=== PATIENT | female | born 1970 ===

== ENCOUNTER → 2024-03-02 | Day surgery (SDC) | payer OTHER ==
[~2024-03-02] VITALS: Ht 165.1 cm
[~2024-03-02] MED LIST: Balanced Salt Solution 500 ML OPH SCH; Cefuroxime Sodium 5 MG in BALANCED SALT IRRIG SOLN NO.2 0.5 ML,SYRINGE, DISPOSABLE, 10 ... IO SCH; HUMALOG100 UNIT/1 SQ; METFORMIN HYD1000 MG PO; Midazolam Hydrochloride 2 MG/2 ML VIAL IV ONE; OFLOXACIN 0.3% 5 ML BOTTLE ONE; OFLOXACIN 0.3% 5 ML BOTTLE OPH SCH; PHENYLEPHRINE/KETOROLAC 4 ML in Balanced Salt Solution 500 ML OPH SCH; POVIDONE IODINE 5% OPHTHALMIC 30 ML BOTTLE OPH ONE; POVIDONE IODINE 5% OPHTHALMIC 30 ML BOTTLE OPH SCH; Phenylephrine Hydrochloride 2 ML BOT OPH ONE; Phenylephrine Hydrochloride 2 ML BOT OPH SCH; Proparacaine Hydrochloride 15 ML BOT OPH ONE; Proparacaine Hydrochloride 15 ML BOT OPH SCH; SODIUM CHLORIDE 0.9% 1,000 ML IV SCH; TETRACAINE HCL 10 DROP BOT OPH SCH; TROPICAMIDE 3 ML BOT OPH ONE; TROPICAMIDE 3 ML BOT OPH SCH; Tetracaine Hydrochloride 0.5% 4 ML BOT OPH ONE; Tetracaine Hydrochloride 0.5% 4 ML BOT OPH SCH; XANAX1 MG PO; prednisoLONE acetate 1% OPHTHALMIC 5 ML BOT OPH ONE; prednisoLONE acetate 1% OPHTHALMIC 5 ML BOT OPH SCH
[2024-03-02 08:15] VITALS: BP 106/64
[2024-03-02 10:25] VITALS: BP 107/70
[2024-03-02 10:40] VITALS: BP 130/89
== END | disposition home or self-care (01) ==
LOC: SDC 02-26 12:30
PROVIDERS: ATTEND Ophthalmology
DX: E10.36 Type 1 diabetes mellitus with diabetic cataract (principal); H25.12 Age-related nuclear cataract, left eye; I48.91 Unspecified atrial fibrillation; F41.9 Anxiety disorder, unspecified; F32.A Depression, unspecified; Z98.51 Tubal ligation status; Z90.89 Acquired absence of other organs; Z79.4 Long term (current) use of insulin; Z79.84 Long term (current) use of oral hypoglycemic drugs; Z79.899 Other long term (current) drug therapy; Z98.890 Other specified postprocedural states

== ENCOUNTER → 2024-05-04 | Day surgery (SDC) | payer SELFPAY ==
[~2024-05-04] MED LIST changes: -Balanced Salt Solution 500 ML OPH SCH; -Cefuroxime Sodium 5 MG in BALANCED SALT IRRIG SOLN NO.2 0.5 ML,SYRINGE, DISPOSABLE, 10 ... IO SCH; -Midazolam Hydrochloride 2 MG/2 ML VIAL IV ONE; -OFLOXACIN 0.3% 5 ML BOTTLE ONE; -OFLOXACIN 0.3% 5 ML BOTTLE OPH SCH; -PHENYLEPHRINE/KETOROLAC 4 ML in Balanced Salt Solution 500 ML OPH SCH; -POVIDONE IODINE 5% OPHTHALMIC 30 ML BOTTLE OPH ONE; -POVIDONE IODINE 5% OPHTHALMIC 30 ML BOTTLE OPH SCH; -Phenylephrine Hydrochloride 2 ML BOT OPH ONE; -Phenylephrine Hydrochloride 2 ML BOT OPH SCH; -Proparacaine Hydrochloride 15 ML BOT OPH ONE; -Proparacaine Hydrochloride 15 ML BOT OPH SCH; -SODIUM CHLORIDE 0.9% 1,000 ML IV SCH; -TETRACAINE HCL 10 DROP BOT OPH SCH; -TROPICAMIDE 3 ML BOT OPH ONE; -TROPICAMIDE 3 ML BOT OPH SCH; -Tetracaine Hydrochloride 0.5% 4 ML BOT OPH ONE; -Tetracaine Hydrochloride 0.5% 4 ML BOT OPH SCH; -prednisoLONE acetate 1% OPHTHALMIC 5 ML BOT OPH ONE; -prednisoLONE acetate 1% OPHTHALMIC 5 ML BOT OPH SCH
== END | disposition home or self-care (01) ==
LOC: SDC 05-02 08:00
PROVIDERS: ATTEND Ophthalmology
DX: H25.10 Age-related nuclear cataract, unspecified eye (principal); Z53.8 Procedure and treatment not carried out for other reasons